=== PATIENT | male | born 1985 | race African-American/Black ===

== ENCOUNTER 2018-03-22 | Emergency (ER) | payer SELFPAY ==
[2018-03-22] MEDS ORDERED: KETOROLAC TROMETHAMINE 30 MG/1 ML VIAL IVPUSH ONE (00:26)
[2018-03-22] MEDS ORDERED: METOCLOPRAMIDE HCL INJECTION 10 MG/2 ML VIAL IVPB ONE (00:26)
[2018-03-22] MEDS ORDERED: SODIUM CHLORIDE 0.9% 1000 ML INFUS.BAG IV ONE (00:26)
[2018-03-22] MEDS ORDERED: CLINDAMYCIN 600MG PREMIX IVPB 600 MG/50 ML BAG IVPB ONE (00:55)
--- NOTE | 2018-03-22 00:55 | PDOC ---
Attending Attestation - Resident Resident Name: Shazia Dunnony - ED Attending Attestation I have performed the following: I have examined & evaluated the patient, The case was reviewed & discussed with the resident, I agree w/resident's findings & plan - HPI HPI: 03/22/18 00:53 Healthy 32-year-old male presents with left facial swelling and pain over the last 2 days, no fevers or chills, no vomiting or airway issues. Has had chronic tooth decay over the last couple of years, never complicated by infections per his recollection. No fevers or chills. - Physicial Exam PE: 03/22/18 00:54 Afebrile, vital signs normal Generally well-appearing but with obvious left facial swelling Warm to touch, no induration or fluctuance Uvula midline, airway clear, no stridor Poor dentition along the left upper region with significant gingival swelling and marked tenderness to palpation, no active purulent drainage or bleeding No lymphadenopathy, neck supple - Medical Decision Making 03/22/18 00:54 32-year-old male with infected left upper molars, rule out abscess. Positive facial swelling, no evidence of airway compromise or Sirs or sepsis. Check labs, IV fluids, pain control CT of the facial bones to rule out abscess Disposition accordingly.
[2018-03-22 01:08] VITALS: BMI 24.3
--- NOTE | 2018-03-22 01:37 | PDOC ---
History of Present Illness - General Chief Complaint: Wound Stated Complaint: HEADACHE Time Seen by Provider: 03/22/18 00:13 History Source: Patient Exam Limitations: No Limitations - History of Present Illness Initial Comments: 03/22/18 01:32 The patient is a 32M with no PMH who presents to the ER with complaints of facial pain and headache. The patient states that he began developing a "sharp twinge" in his L posterior head 2 days ago. Throughout the day yesterday, his pain worsened and became associated with L sided cheek facial swelling and a sharp pain in the middle of his cheek which he says sends "shocks throughout his body". He denies fever, chills, vomiting, but admits to nausea and headache without changes in vision. He admits to photophobia and states that he had 1 migraine as a child. Past History - Past Medical History Allergies/Adverse Reactions: Allergies Allergy/AdvReac Type Severity Reaction Status Date / Time No Known Allergies Allergy Verified 03/22/18 01:09 Home Medications: Ambulatory Orders NK [No Known Home Medication] 03/22/18 COPD: No - Suicide/Smoking/Psychosocial Hx Smoking History: Never smoked Have you smoked in the past 12 months: No Information on smoking cessation initiated: No Hx Alcohol Use: No Drug/Substance Use Hx: No Review of Systems - Review of Systems Able to Perform ROS?: Yes Comments:: 03/22/18 01:37 GENERAL/CONSTITUTIONAL: No fever or chills. No weakness. HEAD, EYES, EARS, NOSE AND THROAT: No change in vision. No ear pain or discharge. No sore throat. CARDIOVASCULAR: No chest pain, palpitations, or lightheadedness. RESPIRATORY: No cough, wheezing, shortness of breath, or hemoptysis. GASTROINTESTINAL: No nausea, vomiting, diarrhea, constipation, or abdominal pain. GENITOURINARY: No dysuria, frequency, hematuria, or change in urination. MUSCULOSKELETAL: No joint or muscle swelling or pain. No neck or back pain. SKIN: No rash or lesions. NEUROLOGIC: Positive for headache and photophobia. No numbness, tingling, focal weakness, loss of consciousness, or change in strength/sensation. Is the patient limited [place] proficient: No *Physical Exam - Vital Signs Last Vital Signs Temp Pulse Resp BP Pulse Ox 99.4 F 74 17 122/77 100 03/22/18 00:00 03/22/18 00:00 03/22/18 00:00 03/22/18 00:00 03/22/18 00:00 - Physical Exam Comments: 03/22/18 01:38 GENERAL: Well developed, well nourished. Awake and alert. No acute distress. HEENT: Normocephalic, atraumatic. Hearing grossly normal. Moist mucous membranes. PERRLA, EOMI. No conjunctival pallor. Sclera are non-icteric. Poor dentition with gingival inflammation. 0.5cm fluctuant mass noted in L cheek with mild facial swelling without redness or warmth to touch. NECK: Supple. Full ROM. No JVD. CARDIOVASCULAR: Regular rate and rhythm. No murmurs, rubs, or gallops. PULMONARY: No evidence of respiratory distress. Lungs clear to auscultation bilaterally. No wheezing, rales or rhonchi. ABDOMINAL: Soft. Non-tender. Non-distended. No rebound or guarding. GENITOURINARY: No CVA tenderness bilaterally. MUSCULOSKELETAL: Normal range of motion at all joints. No bony deformities or tenderness. EXTREMITIES: No cyanosis. No clubbing. No edema. No calf tenderness or swelling. SKIN: Warm and dry. Normal capillary refill. No rashes. No jaundice. NEUROLOGICAL: Alert, awake, appropriate. Cranial nerves 2-12 grossly intact. Normal speech. Gait is normal without ataxia. PSYCHIATRIC: Cooperative. Good eye contact. Appropriate mood and affect. Moderate Sedation - Procedure Monitoring Vital Signs: Procedure Monitoring Vital Signs Temperature 99.4 F 03/22/18 00:00 Pulse Rate 74 03/22/18 00:00 Respiratory Rate 17 03/22/18 00:00 Blood Pressure 122/77 03/22/18 00:00 O2 Sat by Pulse Oximetry (%) 100 03/22/18 00:00 ED Treatment Course - LABORATORY CBC & Chemistry Diagram: 03/22/18 01:36 03/22/18 01:36 - RADIOLOGY Radiology Studies Ordered: Category Date Time Status FACIAL BONES CT WITH CONTRAST [CT] Stat CT Scan 03/22/18 00:33 Ordered - Medications Given in the ED: ED Medications Discontinued Medications Generic Name Dose Route Start Last Admin Trade Name Freq PRN Reason Stop Dose Admin Clindamycin Phosphate 600 mg in 50 mls @ 100 mls/hr 03/22/18 00:55 03/22/18 01:31 Cleocin 600 Mg Premix Ivpb - IVPB 03/22/18 01:24 100 mls/hr ONCE ONE Administration Protocol Ketorolac Tromethamine 30 mg 03/22/18 00:26 03/22/18 01:31 Toradol Injection - IVPUSH 03/22/18 00:27 30 mg ONCE ONE Administration Metoclopramide HCl 10 mg 03/22/18 00:26 03/22/18 01:31 Reglan Injection - IVPB 03/22/18 00:27 10 mg ONCE ONE Administration Sodium Chloride 1,000 ml 03/22/18 00:26 12 01:31 Normal Saline - IV 03/22/18 00:27 1,000 ml ONCE ONE Administration Medical Decision Making - Medical Decision Making 03/22/18 01:38 The patient is a 32M with no PMH who presents to the ER with complaints of a worsening headache and facial swelling concerning for facial abscess vs cellulitis vs trigeminal neuralgia vs migraine. Ordering labs and imaging including CT facial bones with IV contrast to evaluate for possible abscess. 03/22/18 03:21 CT Read: Soft tissues: There is a 1.6 x 1.0 x 1.0 cm peripherally enhancing fluid collection directly adjacent to the left alveolar ridge with a defect in the alveolar ridge leading to the cystic space surrounding the roots of the left anterior maxillary molar. Paranasal sinuses: There is mucosal thickening in bilateral maxillary sinuses IMPRESSION: Facial abscess appears to reflect a dental abscess extending to the left alveolar ridge at the base of the left anterior molar. Will d/w attending. Likely transfer for OMFS. 03/22/18 03:31 Jose C paged for for transfer. Pt informed. 03/22/18 03:47 I have spoken with Dr. Eagle (dental resident) and Dr. Irby (ER attending) and have confirmed transfer and acceptance of pt. Consent signed. Pt stable. *DC/Admit/Observation/Transfer Diagnosis at time of Disposition: Dental abscess - Discharge Dispostion Disposition: TRANSFER ACUTE CARE/OTHER HOSP Condition at time of disposition: Stable Decision to Admit order: No - Referrals - Patient Instructions - Post Discharge Activity - Transfer to Acute Care Facility Receiving Facility: [facility] Accepting Physician:: Dr. Irby
[2018-03-22 02:14] LABS: BASO % 0.3 % (0-2.0); EOS % 0.1 % (0-4.5); HEMATOCRIT 40.2 % (35.4-49); LYMPH % 14.1 % (8-40); MCH 28.9 pg (25.7-33.7); MCHC 34.9 g/dl (32.0-35.9); MEAN CELL VOLUME 82.9 fl (80-96); MEAN PLT VOLUME 8.4 fl (7.5-11.1); MONO % 8.1 % (3.8-10.2); NEUT % 77.4 % (42.8-82.8); PLATELET COUNT 255 K/MM3 (134-434); RBC 4.85 M/mm3 (4.00-5.60); WHITE BLOOD COUNT 9.9 K/mm3 (4.0-10.0)
[2018-03-22 02:39] LABS: ALBUMIN 3.9 g/dl (3.4-5.0); ALK PHOS 95 U/L (45-117); ANION GAP 8 MMOL/L (8-16); BILIRUBIN,TOTAL 0.6 mg/dL (0.2-1); BLOOD UREA NITROGEN 9 mg/dL (7-18); CALCIUM 8.7 mg/dL (8.5-10.1); CHLORIDE 102 mmol/L (98-107); CO2 28 mmol/L (21-32); GLUCOSE,RANDOM 94 mg/dL (74-106); POTASSIUM 3.9 mmol/L (3.5-5.1); SGOT/AST 17 U/L (15-37); SGPT/ALT 17 U/L (13-61); SODIUM 138 mmol/L (136-145); TOT PROT 7.8 g/dl (6.4-8.2)
[2018-03-22 05:01] VITALS: BP 132/62; PULSE 91; TEMP 99.8
== END 2018-03-22 05:15 | disposition short-term general hospital (02) ==
LOC: JER
PROC: 3E03329 Introduction of Other Anti-infective into Peripheral Vein, Percutaneous Approach (ICD-10-PCS; principal; 2018-03-22)
PROC: 3E033GC Introduction of Other Therapeutic Substance into Peripheral Vein, Percutaneous Approach (ICD-10-PCS; 2018-03-22)
PROC: 3E0333Z Introduction of Anti-inflammatory into Peripheral Vein, Percutaneous Approach (ICD-10-PCS; 2018-03-22)
DX: K04.7 Periapical abscess without sinus (principal)
CPT/HCPCS: 36415; 70487-TC; 80053; 85025; 99283-25; J7030